=== PATIENT | female | born 1965 | race Caucasian/White ===

== ENCOUNTER 2016-12-17 15:24 | Emergency (ER) | payer BC ==
[2016-12-17 15:54] LABS: URINE BILIRUBIN NEGATIVE (NEGATIVE); URINE BLOOD NEGATIVE (NEGATIVE); URINE GLUCOSE (UA) NORMAL (NORMAL); URINE KETONE NEGATIVE (NEGATIVE); URINE LEUKOCYTE ESTERASE NEGATIVE (NEGATIVE); URINE NITRATE NEGATIVE (NEGATIVE); URINE PROTEIN NEGATIVE (NEGATIVE); UROBILINOGEN NORMAL mg/dL (<1.0)
[2016-12-17 18:08] LABS: BASO # 0.1 10_X3_uL (0.0-0.1); BASO % 0.4 % (0.1-1.2); EOS # 0.3 10_X3_uL (0.0-0.4); EOS % 2.1 % (0.7-5.8); GRAN # 8.2 10_X3_uL (1.6-6.1); GRAN % 65.2 % (34.0-71.1); HEMATOCRIT 40.8 % (34-45); HEMOGLOBIN 13.4 g/dL (11.2-15.7); LYMPH # 2.7 10_X3_uL (1.2-3.7); LYMPH % 21.7 % (19.3-51.7); MEAN CORPUSCULAR HEMOGLOBIN 29.6 pg (27.0-33.0); MEAN CORPUSCULAR HGB CONC 32.8 g/dL (32.0-36.0); MEAN CORPUSCULAR VOLUME 90.3 fL (79-95); MEAN PLATELET VOLUME 9.9 fl (7.5-11.5); MONO # 1.3 10_X3_uL (0.2-0.9); MONO % 10.6 % (4.7-12.5); PLATELET COUNT 274 x10_3/uL (182-369); RED BLOOD COUNT 4.52 x10_6/uL (3.9-5.2); RED CELL DISTRIBUTION WIDTH 12.9 % (11.7-14.4); WHITE BLOOD COUNT 12.6 x10_3/uL (4.0-10.0)
[2016-12-17 18:22] LABS: ALBUMIN 4.6 gm/dL (3.4-5.0); ALKALINE PHOSPHATASE 84 U/L (50-136); ALT/SGPT 23 U/L (3.5-33.9); AMYLASE 85 U/L (15.62-74.58); AST/SGOT 18 U/L (7.04-26.96); BILIRUBIN,TOTAL 0.35 mg/dL (0.0-1.0); BLOOD UREA NITROGEN 15 mg/dL (7-18); CARBON DIOXIDE 25 mmol/L (21-32); CREATININE 0.6 mg/dL (0.6-1.3); GLUCOSE,RANDOM 97 mg/dL (70-99); LIPASE 22 U/L (6.75-60.75); POTASSIUM 4.6 mmol/L (3.5-5.1); SODIUM 138 mmol/L (136-145); TOTAL PROTEIN 7.2 gm/dL (6.4-8.2)
== END 2016-12-17 19:06 | disposition home or self-care (01) ==
LOC: ER 15:24
PROVIDERS: General Practice
DX: K80.50 Calculus of bile duct without cholangitis or cholecystitis without obstruction (principal); J06.9 Acute upper respiratory infection, unspecified; R10.11 Right upper quadrant pain; R11.2 Nausea with vomiting, unspecified; Z79.899 Other long term (current) drug therapy; Z88.2 Allergy status to sulfonamides
CPT/HCPCS: 36415; 80053; 81003; 82150; 83690; 85025; 87070; 87400; 87880; 99070; 99283; J8597